=== PATIENT | male | born 1965 | race Caucasian/White ===

== ENCOUNTER 2022-11-26 22:37 | Inpatient (IN) | payer OTHER ==
[2022-11-26] MEDS ORDERED: Morphine 4 MG/ML Syringe IVPUSH ONE ×2 (22:45→23:25)
[2022-11-26] MEDS ORDERED: Ondansetron 4 MG/2 ML SDV IVPUSH ONE (22:45)
[2022-11-26] MEDS ORDERED: Sodium Chloride 0.9% 1,000 ML IV ONE (23:39)
[2022-11-26] MEDS ORDERED: HYDROmorphone 1 MG/ML Syringe IVPUSH ONE (23:55)
[2022-11-27] MEDS ORDERED: Iopamidol 755 Mg/ML 100 ML Bottle IVPUSH ONE (00:04)
[2022-11-27 00:11] LABS: BASOPHILS ABSOLUTE AUTO 0.03 K/mm3 (0.01-0.08); BASOPHILS PERCENT AUTO 0.2 % (0.1-1.2); EOSINOPHILS ABSOLUTE AUTO 0.04 K/mm3 (0.04-0.54); EOSINOPHILS PERCENT AUTO 0.3 (0.8-7.0); HEMATOCRIT 43.3 % (40.1-51.0); IMMATURE GRAN ABSOLUTE AUTO 0.08 K/mm3 (0.00-0.10); IMMATURE GRAN PERCENT AUTO 0.6 % (<=1.0); LYMPHOCYTES ABSOLUTE AUTO 1.24 K/mm3 (1.32-3.57); LYMPHOCYTES PERCENT AUTO 9.3 % (21.8-53.1); MEAN CORPUSCULAR HEMOGLOBIN 26.9 pg (25.7-32.2); MEAN CORPUSCULAR HGB CONC 32.3 g/dl (32.2-35.5); MEAN CORPUSCULAR VOLUME 83.3 fl (79.0-92.2); MEAN PLATELET VOLUME 9.7 fl (9.4-12.3); MONOCYTES ABSOLUTE AUTO 0.97 K/mm3 (0.30-0.82); MONOCYTES PERCENT AUTO 7.3 % (5.3-12.2); NEUTROPHILS ABSOLUTE AUTO 10.95 K/mm3 (1.78-5.38); NEUTROPHILS PERCENT AUTO 82.3 % (34.0-67.9); PLATELET COUNT,PLT 230 K/mm3 (163-337); WHITE BLOOD CELL COUNT,WBC 13.31 K/mm3 (4.23-9.07)
[2022-11-27] MEDS ORDERED: Sodium Chloride 0.9% 100 ML IV SCH (00:15)
[2022-11-27 00:28] LABS: INR 1.02; PROTHROMBIN TIME 10.9 SECONDS (9.7-12.0)
[2022-11-27 00:50] LABS: A/G RATIO 1.3 (1-2); ALANINE AMINOTRANSFERASE,ALT 56 U/L (16-63); ALKALINE PHOSPHATASE 75 U/L (46-116); ANION GAP 16.3 (5-15); ASPARTATE AMNIOTRANSFERASE,AST 41 U/L (15-37); BILIRUBIN TOTAL 0.5 mg/dL (0.2-1.0); BLOOD UREA NITROGEN,BUN 18 mg/dL (7-18); BUN/CREATININE RATIO 16.4 (14-18); CALCIUM 8.7 mg/dL (8.5-10.1); CARBON DIOXIDE,CO2 22 mEq/L (21-32); CHLORIDE,CL 103 mEq/L (98-107); CREATININE 1.1 mg/dL (0.7-1.3); ESTIMATED GFR 78 mL/min (>60); GLUCOSE RANDOM 131 mg/dL (70-99); POTASSIUM,K 3.3 mEq/L (3.5-5.1); PROTEIN TOTAL,TP 7.1 g/dl (6.4-8.2); SODIUM,NA 138 mEq/L (136-145)
[2022-11-27] MEDS: Lactated Ringers 1,000 ML IV SCH ×4 (01:30→22:51)
[2022-11-27] MEDS ORDERED: Ondansetron 4 MG/2 ML SDV IVPUSH PRN (02:17)
[2022-11-27] MEDS ORDERED: Ketorolac 30 MG/ML SDV IVPUSH PRN (02:17)
[2022-11-27] MEDS: HYDROmorphone 0.5 MG/0.5 ML Syringe IVPUSH PRN ×3 (03:05→11:51)
[2022-11-27 08:22] LABS: BASOPHILS ABSOLUTE AUTO 0.02 K/mm3 (0.01-0.08); BASOPHILS PERCENT AUTO 0.3 % (0.1-1.2); EOSINOPHILS ABSOLUTE AUTO 0.05 K/mm3 (0.04-0.54); EOSINOPHILS PERCENT AUTO 0.8 (0.8-7.0); HEMOGLOBIN 12.4 gm/dl (13.7-17.5); IMMATURE GRAN ABSOLUTE AUTO 0.04 K/mm3 (0.00-0.10); IMMATURE GRAN PERCENT AUTO 0.6 % (<=1.0); LYMPHOCYTES ABSOLUTE AUTO 1.33 K/mm3 (1.32-3.57); LYMPHOCYTES PERCENT AUTO 20.8 % (21.8-53.1); MEAN CORPUSCULAR HEMOGLOBIN 26.7 pg (25.7-32.2); MEAN CORPUSCULAR HGB CONC 31.8 g/dl (32.2-35.5); MEAN CORPUSCULAR VOLUME 83.9 fl (79.0-92.2); MEAN PLATELET VOLUME 9.7 fl (9.4-12.3); MONOCYTES ABSOLUTE AUTO 0.62 K/mm3 (0.30-0.82); MONOCYTES PERCENT AUTO 9.7 % (5.3-12.2); NEUTROPHILS ABSOLUTE AUTO 4.34 K/mm3 (1.78-5.38); NEUTROPHILS PERCENT AUTO 67.8 % (34.0-67.9); PLATELET COUNT,PLT 197 K/mm3 (163-337); RED BLOOD CELL COUNT 4.65 M/mm3 (4.63-6.08)
[2022-11-27 08:57] LABS: A/G RATIO 1.1 (1-2); ALBUMIN 3.3 g/dl (3.4-5.0); ANION GAP 8.5 (5-15); BILIRUBIN TOTAL 0.5 mg/dL (0.2-1.0); BUN/CREATININE RATIO 14.4 (14-18); CALCIUM 7.9 mg/dL (8.5-10.1); CREATININE 0.9 mg/dL (0.7-1.3); EST CRCL DRUG DOSING (CG) 96.45 mL/min; POTASSIUM,K 3.5 mEq/L (3.5-5.1); PROTEIN TOTAL,TP 6.3 g/dl (6.4-8.2)
[2022-11-27] MEDS ORDERED: Famotidine 20 MG/2 ML SDV IV SCH (09:00)
[2022-11-27] MEDS: Enoxaparin 40 MG/0.4 ML Syringe SUBCUT SCH (11:01)
[2022-11-27] MEDS ORDERED: Ibuprofen 600 MG Tab PO PRN (14:08)
[2022-11-27] MEDS ORDERED: HYDROmorphone 0.5 MG/0.5 ML Syringe IVPUSH PRN (14:10)
[2022-11-27] MEDS ORDERED: Acetaminophen 325 MG Tab PO PRN (14:11)
[2022-11-27] MEDS: oxyCODONE 5 MG Tab PO PRN ×2 (14:31→17:59)
[2022-11-28] MEDS: Lactated Ringers 1,000 ML IV SCH (05:27)
[2022-11-28] MEDS ORDERED: HYDROmorphone 2 MG Tab PO PRN (08:22)
[2022-11-28] MEDS: Enoxaparin 40 MG/0.4 ML Syringe SUBCUT SCH (08:47)
== END 2022-11-28 12:05 | disposition home or self-care (01) | DRG 914 ==
LOC: JD.ED 22:37 → JD.MS 11-27 02:17
PROVIDERS: ADMIT Specialist; ATTEND Specialist
DX: S38.1XXA Crushing injury of abdomen, lower back, and pelvis, initial encounter (principal); S32.502A Unspecified fracture of left pubis, initial encounter for closed fracture; S32.501A Unspecified fracture of right pubis, initial encounter for closed fracture; E66.09 Other obesity due to excess calories; H11.33 Conjunctival hemorrhage, bilateral; Z68.31 Body mass index [BMI] 31.0-31.9, adult; X58.XXXA Exposure to other specified factors, initial encounter; Y99.0 Civilian activity done for income or pay
CPT/HCPCS: 36415; 70450; 70450-26; 71260; 71260-26; 72125; 72125-26; 72128; 72128-26; 72131; 72131-26; 73090-26-RT; 73090-RT; 74177; 74177-26; 80053; 85025; 85610; 86850; 86900; 86901; 96361; 96374; 96375; 96376; 97116-GP; 97161-GP; 99285-25; A9270-GY; J1170; J1650; J1885; J2270; J2405; J3490; J7030; J7120; Q9967